=== PATIENT | male | born 1995 | race Hispanic/Latino ===

== ENCOUNTER 2022-01-08 11:10 | Emergency (ER) | payer SELFPAY | END 2022-01-08 13:00 | disposition home or self-care (01) | LOC: ERS 11:10 | DX: R10.31 Right lower quadrant pain (principal) | CPT/HCPCS: 99283 ==

== ENCOUNTER 2022-02-28 09:26 | Outpatient (CLI) | payer OTHER | END 2022-02-28 09:27 | disposition home or self-care (01) | LOC: BICULT 09:26 | PROVIDERS: ATTEND Nurse Practitioner Family | DX: R10.84 Generalized abdominal pain (principal); K82.8 Other specified diseases of gallbladder | CPT/HCPCS: 76700 ==